=== PATIENT | female | born 1985 | race Caucasian/White ===

== ENCOUNTER 2017-10-24 20:31 | Emergency (ER) | payer OTHER ==
[~2017-10-24] VITALS: Ht 167.6 cm; Wt 52.6 kg
[2017-10-24 20:34] VITALS: BP 136/98
[2017-10-24 22:54] LABS: HCG UR SG 1.025 (1.003-1.030)
== END 2017-10-24 23:30 | disposition home or self-care (01) ==
LOC: ED 23:10
DX: N63.0 Unspecified lump in unspecified breast (principal)
CPT/HCPCS: 81025; 99283

== ENCOUNTER 2018-05-12 02:48 | Inpatient (IN) | payer OTHER ==
[~2018-05-12] VITALS: Ht 167.6 cm; Wt 48.0 kg
[2018-05-12] MEDS ORDERED: QUET50TA5 PO (03:00)
[2018-05-12 03:30] LABS: BASOPHILS # (AUTO) 0.06 x10^3/uL (0-0.1); BASOPHILS % (AUTO) 1 % (0-1); EOSINOPHILS # (AUTO) 0.16 x10^3/uL (0-0.4); EOSINOPHILS % (AUTO) 2 % (1-7); LYMPHOCYTES # (AUTO) 2.12 x10^3/uL (1-3.4); LYMPHOCYTES % (AUTO) 26 % (22-44); MD NO; MEAN CORPUSCULAR HGB CONC 33.1 g/dL (32.4-35.8); MEAN CORPUSCULAR VOLUME 93.7 fL (80-100); MEAN PLATELET VOLUME 8.6 fL (7.4-10.4); MONOCYTES # (AUTO) 0.79 x10^3/uL (0.2-0.8); MONOCYTES % (AUTO) 10 % (2-9); NEUTROPHILS # (AUTO) 4.97 x10^3/uL (1.8-6.8); NEUTROPHILS % (AUTO) 61 % (42-75); PLATELET COUNT 271 x10^3/uL (130-400); RED BLOOD COUNT 4.17 x10^6/uL (3.82-5.3); RED CELL DISTRIBUTION WIDTH 13.4 % (9.6-15.2)
[2018-05-12 03:39] LABS: ALBUMIN 3.6 g/dL (3.4-5.0); ANION GAP 11 mmol/L (5-15); CALCIUM 8.1 mg/dL (8.5-10.1); CHLORIDE 108 mmol/L (98-107); CREATININE 0.57 mg/dL (0.55-1.02)
[2018-05-12 03:41] LABS: HCG UR SG > 1.030 (1.003-1.030)
[2018-05-12 03:45] LABS: ACETAMINOPHEN < 2 mcg/mL (10-30); SALICYLATE LEVEL < 1.7 mg/dL (2.8-20.0)
[2018-05-12 03:55] LABS: AMPHETAMINE SCREEN, URINE Positive (Negative); BARBITURATE SCREEN, URINE Negative (Negative); BENZODIAZEPINE SCREEN, URINE Negative (Negative); CANNABINOID SCREEN, URINE Negative (Negative); COCAINE SCREEN, URINE Negative (Negative); METHADONE SCREEN, URINE Negative (Negative); OPIATE SCREEN, URINE Negative (Negative)
[2018-05-12] MEDS ORDERED: FLUO20CA19 PO (04:12)
[2018-05-12 05:04] VITALS: BP 113/73
[2018-05-12] MEDS ORDERED: DOCUSATE 100 MG CAPSULE PO PRN (06:00)
[2018-05-12] MEDS ORDERED: ONDANSETRON ODT 4 MG PO PRN (06:00)
[2018-05-12] MEDS: SODIUM CHLORIDE 0.9% 1,000 ML IV SCH ×2 (06:03→12:26)
[2018-05-12 06:41] LABS: FREE T4 (FREE THYROXINE) 1.04 ng/dL (0.76-1.46); THYROID STIMULATING HORMONE 1.55 mIU/L (0.358-3.740)
[2018-05-12 06:52] LABS: HEMOGLOBIN A1C 5.2 % (4.2-6.3)
[2018-05-12 08:17] VITALS: BP 108/61
[2018-05-12 13:18] VITALS: BP 107/54
[2018-05-12 16:43] LABS: MICROSCOPIC NOT IND
[2018-05-12 16:45] LABS: CULTURE INDICATED? NO
[2018-05-12 19:52] VITALS: BP 115/66
[2018-05-13 02:27] VITALS: BP 121/64
[2018-05-13 05:41] LABS: BASOPHILS # (AUTO) 0.04 x10^3/uL (0-0.1); BASOPHILS % (AUTO) 1 % (0-1); EOSINOPHILS # (AUTO) 0.17 x10^3/uL (0-0.4); EOSINOPHILS % (AUTO) 2 % (1-7); LYMPHOCYTES # (AUTO) 2.12 x10^3/uL (1-3.4); LYMPHOCYTES % (AUTO) 27 % (22-44); MD NO; MEAN CORPUSCULAR HEMOGLOBIN 31.9 pg (27.0-34.8); MEAN CORPUSCULAR HGB CONC 33.7 g/dL (32.4-35.8); MEAN CORPUSCULAR VOLUME 94.5 fL (80-100); MEAN PLATELET VOLUME 8.8 fL (7.4-10.4); MONOCYTES % (AUTO) 9 % (2-9); NEUTROPHILS # (AUTO) 4.97 x10^3/uL (1.8-6.8); NEUTROPHILS % (AUTO) 62 % (42-75); PLATELET COUNT 247 x10^3/uL (130-400); RED BLOOD COUNT 3.94 x10^6/uL (3.82-5.3); RED CELL DISTRIBUTION WIDTH 13.1 % (9.6-15.2)
[2018-05-13 05:51] LABS: CHLORIDE 111 mmol/L (98-107)
[2018-05-13 05:59] LABS: ALANINE AMINOTRANSFERASE 16 U/L (12-78); ALBUMIN 3.1 g/dL (3.4-5.0); ALKALINE PHOSPHATASE 39 U/L (45-117); ANION GAP 7 mmol/L (5-15); BILIRUBIN,TOTAL 1.6 mg/dL (0.2-1.0); CALCIUM 8.5 mg/dL (8.5-10.1); CHOL/HDL RATIO 1.9; CHOLESTEROL, TOTAL 128 mg/dL (140-239); CREATININE 0.42 mg/dL (0.55-1.02); HDL CHOL % 54 % (28-40); HDL CHOLESTEROL (DIRECT) 69 mg/dL (40-60); LDL CHOLESTEROL,CALCULATED 45 mg/dL (54-169); LDL/HDL RATIO 0.7 (0.5-3.0); TOTAL PROTEIN 5.7 g/dL (6.4-8.2); TRIGLYCERIDES 69 mg/dL (50-200); VLDL CHOLESTEROL 14 mg/dL (0-25)
[2018-05-13 06:56] VITALS: BP 108/66
[2018-05-13 12:21] VITALS: BP 114/67
[2018-05-13 19:40] VITALS: BP 106/67
[2018-05-14 02:18] VITALS: BP 105/65
[2018-05-14 07:18] VITALS: BP 102/66
[2018-05-14 10:04] VITALS: BP 116/79
[2018-05-14] MEDS ORDERED: LORazepam 1MG TABLET PO ONE (15:00)
[2018-05-14 21:07] VITALS: BP 100/63
[2018-05-15 08:15] VITALS: BP_SYST 101; BP_SYST 120; BP_DIAS 63; BP_DIAS 85
== END 2018-05-15 19:45 | DRG 918 ==
LOC: ED 03:08 → EDIP 04:31 → 4WST 04:58 → 2N 05-14 10:01
PROVIDERS: ADMIT Internal Medicine; ATTEND Internal Medicine
DX: T43.592A Poisoning by other antipsychotics and neuroleptics, intentional self-harm, initial encounter (principal); Y92.89 Other specified places as the place of occurrence of the external cause; F15.10 Other stimulant abuse, uncomplicated; Z91.5 Personal history of self-harm; F29 Unspecified psychosis not due to a substance or known physiological condition; F32.9 Major depressive disorder, single episode, unspecified; F41.9 Anxiety disorder, unspecified
CPT/HCPCS: 36415; 80048; 80053; 80061; 80307; 80329; 81003; 81025; 82040; 83036; 83735; 84439; 84443; 85025; 93005; 99285; G0378; G0480; J7030